=== PATIENT | male | born 2000 | race Caucasian/White ===

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

== ENCOUNTER 2020-03-18 16:06 | Emergency (ER) | payer OTHER ==
[~2020-03-18] VITALS: Ht 170.2 cm; Wt 107.0 kg
[2020-03-18 16:16] VITALS: BP 146/55
[2020-03-18 16:49] VITALS: BP 140/60
== END 2020-03-18 16:49 | disposition home or self-care (01) ==
LOC: MED 16:06
DX: R06.6 Hiccough (principal)
CPT/HCPCS: 99283

== ENCOUNTER 2021-10-10 12:01 | Emergency (ER) | payer OTHER ==
[~2021-10-10] VITALS: Ht 170.2 cm; Wt 104.3 kg
[2021-10-10 12:02] VITALS: BP 114/46
--- NOTE | 2021-10-10 12:08 | NUR ---
PT AMB TO BED 12.
[2021-10-10] MEDS ORDERED: IBUP-2213 PO (12:25)
[2021-10-10 12:48] VITALS: BP 114/46
--- NOTE | 2021-10-10 12:48 | NUR ---
21Y MALE BIB SELF DUE TO C/O 03/31 LOWER BACK PAIN X YESTERDAY. PMH: DENIES NKA
--- NOTE | 2021-10-10 12:48 | NUR ---
Patient discharged with v/s stable. Written and verbal after care instructions given and explained. Patient alert, oriented and verbalized understanding of instructions. Ambulatory with steady gait. All questions addressed prior to discharge. ID band removed. Patient advised to follow up with PMD. Rx of IBURPFOEN given. Patient educated on indication of medication including possible reaction and side effects. Opportunity to ask questions provided and answered.
== END 2021-10-10 12:48 | disposition home or self-care (01) ==
LOC: MED 12:01
DX: S39.012A Strain of muscle, fascia and tendon of lower back, initial encounter (principal); W01.0XXA Fall on same level from slipping, tripping and stumbling without subsequent striking against object, initial encounter; Y93.89 Activity, other specified; Y92.89 Other specified places as the place of occurrence of the external cause; Y99.8 Other external cause status
CPT/HCPCS: 99282

== ENCOUNTER 2021-10-20 08:56 | Emergency (ER) | payer OTHER ==
[~2021-10-20] VITALS: Ht 170.2 cm; Wt 108.9 kg
[~2021-10-20 08:56] MED LIST: IBUP-2213 PO
[2021-10-20 09:16] VITALS: BP 141/80
--- NOTE | 2021-10-20 09:20 | NUR ---
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 MEDHX: DENIES ALLERGIES: MARIBEL
--- NOTE | 2021-10-20 10:00 | NUR ---
DR DEL CID AT BEDSIDE EVALUATING PT
--- NOTE | 2021-10-20 10:29 | NUR ---
PT'S WOUND CLEANED AND IRRIGATED W/ NORMAL SALINE AND LAC TRAY SETUP @ BEDSIDE. ERMD NOTIFIED.
[2021-10-20] MEDS: LIDOCAINE MPF 1% 10 MG/ML VIAL INJ ONE (10:35)
--- NOTE | 2021-10-20 10:42 | NUR ---
DR DEL CID AT BEDSIDE PERFORMING SUTURE REPAIR
[2021-10-20 10:55] VITALS: BP 130/72
--- NOTE | 2021-10-20 10:55 | NUR ---
Patient discharged with v/s stable. Written and verbal after care instructions given and explained. Patient verbalized understanding. Ambulatory with steady gait. All questions addressed prior to discharge. Advised to follow up with PMD.
== END 2021-10-20 10:55 | disposition home or self-care (01) ==
LOC: MED 08:56
DX: S01.511A Laceration without foreign body of lip, initial encounter (principal); W45.8XXA Other foreign body or object entering through skin, initial encounter; Y93.89 Activity, other specified; Y92.89 Other specified places as the place of occurrence of the external cause; Y99.8 Other external cause status
CPT/HCPCS: 12011; 90471; 90715; 99283; J2001

== ENCOUNTER 2021-10-22 16:12 | Emergency (ER) | payer OTHER ==
[~2021-10-22] VITALS: Ht 170.2 cm; Wt 107.5 kg
[2021-10-22 16:16] VITALS: BP 153/84
[2021-10-22 16:39] VITALS: BP 153/84
--- NOTE | 2021-10-22 16:39 | NUR ---
Patient discharged with v/s stable. Written and verbal after care instructions given and explained. Patient verbalized understanding. Ambulatory with to car. All questions addressed prior to discharge. Advised to follow up with PMD.
== END 2021-10-22 16:39 | disposition home or self-care (01) ==
LOC: MED 16:12
DX: S01.511D Laceration without foreign body of lip, subsequent encounter (principal); Z79.899 Other long term (current) drug therapy; X58.XXXD Exposure to other specified factors, subsequent encounter
CPT/HCPCS: 99281

== ENCOUNTER 2021-10-29 14:33 | Emergency (ER) | payer OTHER ==
[~2021-10-29] VITALS: Ht 170.2 cm; Wt 104.3 kg
[2021-10-29 14:53] VITALS: BP 130/84
--- NOTE | 2021-10-29 14:57 | NUR ---
PT AMB TO BED 7.
--- NOTE | 2021-10-29 15:00 | NUR ---
21 y/o M BIB self from home for suture removal. Pt A&Ox4, ambulatory, reports seen here on 10/20/20 for sutures of upper lip. Denies pain, swelling, warmth, redness, drainage from suture site. No medications prior to arrival. Bed locked in lowest position, side rails x 1. PMH/Sx/Meds: Denies NKDA
[2021-10-29] MEDS ORDERED: BACITRACIN OINT 500 UNITS/GM PKT TP ONE (15:45)
--- NOTE | 2021-10-29 15:51 | NUR ---
Bacitracin ointment applied to suture lip.
== END 2021-10-29 15:51 | disposition home or self-care (01) ==
LOC: MED 14:33
DX: S01.511D Laceration without foreign body of lip, subsequent encounter (principal); Z48.00 Encounter for change or removal of nonsurgical wound dressing; X58.XXXD Exposure to other specified factors, subsequent encounter
CPT/HCPCS: 99282